=== PATIENT | male | born 2000 | race Caucasian/White ===

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

== ENCOUNTER 2021-06-07 22:38 | Emergency (ER) | payer BC, OTHER ==
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
[2021-06-08 00:21] VITALS: BP 124/78; PULSE 76; RESP 20; TEMP 98.3
== END 2021-06-08 00:20 | disposition home or self-care (01) ==
LOC: EC 22:38
DX: S16.1XXA Strain of muscle, fascia and tendon at neck level, initial encounter (principal); Z91.010 Allergy to peanuts; V49.40XA Driver injured in collision with unspecified motor vehicles in traffic accident, initial encounter; Y92.89 Other specified places as the place of occurrence of the external cause
CPT/HCPCS: 72050; 99284